=== PATIENT | female | born 2000 | race Caucasian/White ===

== ENCOUNTER 2020-03-19 04:45 | Inpatient (IN) | payer BC, SELFPAY ==
[2020-03-19] VITALS (57 sets, daily range): BP systolic 108–143; BP diastolic 57–86; PULSE 66–97; RESP 16; TEMP 36.8–37.9; O2SAT 91–100; BMI 28.4
[2020-03-19 04:27] LABS: ROM Internal Control Test YES-OK TO RESULT pt. (Internal QC); ROM Patient Test POSITIVE (Negative)
[2020-03-19] MEDS: Lactated Ringers 500 ML 999 ML IV (04:55)
[2020-03-19 05:09] LABS: Absolute Lymphocyte Count 1.82 X10^3/uL (0.83-4.51); Absolute Neutrophil Count 5.7 X10^3/uL (2.0-7.7); Basophil# 0.02 X10^3/uL; Basophil% 0.2 % (0-1); Eosinophil# 0.05 X10^3/uL; Eosinophils% 0.6 % (0-5); Hematocrit 35.3 % (37-47); Lymphocyte # 1.82 X10^3/ul (4.0); Lymphocyte % 21.8 % (19-41); Mean Corpuscular Hgb 31.6 pg (27.0-32.0); Mean Corpuscular Volume 92.9 fL (81-99); Mean Platelet Vol. 10.7 fl (6.2-12.0); Monocyte# 0.66 X10^3/uL; Monocyte% 7.9 % (0-10); NRBC Flagged by Analyzer 0 % (0-5); Neutrophil # 5.74 X10^3/uL (2.7-7.7); Platelet Count 242 K/mm3 (150-450); RBC Distribution Width CV 12.2 % (11.6-14.6); RBC Distribution Width SD 41.8 fl (35.1-43.9); White Blood Count 8.3 K/mm3 (4.4-11.0)
[2020-03-19] MEDS: Lactated Ringers 1,000 ML 200 ML IV ×2 (05:37→10:32)
[2020-03-19] MEDS: fentaNYL-bupivacaine (epidural) 100 ML BAG EPIDURAL ×2 (06:08→10:33)
[2020-03-19 06:50] LABS: Partial Thromboplast Time 27.8 Seconds (24.1-36.2); Prothrombin Time (Protime)PT. 12.3 SECONDS (11.7-14.9)
[2020-03-19 07:06] LABS: AST(SGOT) 24 U/L (15-37); Alanine Aminotransfer ALT/SGPT 21 U/L (13-56); Creatinine, Serum 0.82 mg/dL (0.55-1.02); EST Glomerular Filtration Rate 94 mL/min (>60); Est Glom Filt Rate - Afr Amer 114 mL/min (>60); Estimated Creatinine Clearance 90.53 ml/min; Uric Acid 5.1 mg/dL (2.6-6.0)
--- NOTE | 2020-03-19 07:19 | PCM.HP.OB ---
- Problem List (1) 38 weeks gestation of Status: Acute (2) Primiparous Status: Acute (3) SROM (spontaneous rupture of membranes) Status: Acute History Date of Admission: 03/19/20 Final TESSA: 03/27/20 Gestational age: 38 Weeks and 6 Days History of this : This is a 19 year-old, G 1, P 0, at 38 weeks gestational age who presents with SROM. Medical History: Medical History (Last Updated 03/19/20 @ 07:[address] Alicia Prado, ) Anemia affecting O99.019 Allergies No Known Allergies Allergy (Verified 03/19/20 04:00) Home Medications: Home Medications Docosahexanoic Acid [ Dha] 200 mg PO DAILY 03/19/20 Ferrous Sulfate [Iron] 325 mg PO DAILY 03/19/20 Smoking Status: Never smoker Number of Fetus(es): 1 History Past Pregnancies: Past Pregnancies Delivery Date Name GA/ Weeks Outcome Route Wt Infant Sex Labor Length Anesthesia Delivery Location Provider FOB Physical Exam Vitals: Vital Signs Temp Pulse BP Pulse Ox 98.2 F 82 125/82 H 99 03/19/20 06:41 03/19/20 07:14 03/19/20 07:11 03/19/20 07:14 General: Alert, No apparent distress HEENT: Atraumatic Abdomen: Soft, Gravid Extremities:: No edema Neurological: Neuro grossly intact UNDERWRITING OPERATIONS MANAGER: Normal external genitalia Estimated gestational size: Appropriate for gestational size Assessment/Plan All Active Problems (Last Updated 03/19/20 @ 07:[address] Alicia Prado, ) 38 weeks gestation of (Acute) Primiparous (Acute) SROM (spontaneous rupture of membranes) (Acute) This is a 19 year-old, G 1, P 0, at 38 weeks gestational age admitted for labor management. - Routine intrapartum care - Epidural PRN - GBS negative - Pelvis adequate and EFW expected to be < 4500g, anticipate
--- NOTE | 2020-03-19 08:06 | PCM.PN.BLA ---
Progress Note Cvx 370/-2, head well applied. AROM of forebag in usual sterile fashion for clear fluid. Category 1 tracing STROKE Vital Signs/Narrative: Vital Signs Temp Pulse BP Pulse Ox 03/19/20 07:14 82 99 03/19/20 07:11 98.4 F 79 125/82 H 03/19/20 07:09 85 99 03/19/20 07:04 85 99 03/19/20 06:59 91 98 03/19/20 06:54 81 98 03/19/20 06:52 91 91 03/19/20 06:48 83 98 03/19/20 06:43 88 98 03/19/20 06:41 98.2 F 03/19/20 06:38 85 128/75 H 99 03/19/20 06:33 85 99 03/19/20 06:32 132/79 H 03/19/20 06:28 87 99 03/19/20 06:27 92 134/79 H 03/19/20 06:23 86 135/74 H 98 03/19/20 06:22 85 133/69 H 03/19/20 06:18 94 135/77 H 98 03/19/20 06:14 91 132/63 H 03/19/20 06:13 94 98 03/19/20 06:12 94 134/84 H 03/19/20 06:08 96 98 03/19/20 06:07 98.2 F 97 131/76 H 03/19/20 06:03 86 98 03/19/20 06:02 81 130/70 H 03/19/20 05:58 80 98 03/19/20 05:57 132/77 H 03/19/20 05:53 88 118/73 97 03/19/20 05:52 90 121/73 H 03/19/20 05:48 77 99 03/19/20 05:47 83 131/81 H 03/19/20 05:43 85 99 03/19/20 05:28 100.2 F H 75 136/80 H 03/19/20 04:34 86 132/75 H 03/19/20 04:24 89 127/85 H
[2020-03-19] MEDS: Ondansetron 4 MG/2 ML Vial IV (11:27)
[2020-03-19] MEDS: Oxytocin 30 units/NS 500 ml 30 UNITS/500 ML IV.SOLN 334 UNITS IV (14:13)
--- NOTE | 2020-03-19 14:32 | PCM.OPRPT ---
Problem List (1) 38 weeks gestation of Status: Acute (2) Primiparous Status: Acute (3) SROM (spontaneous rupture of membranes) Status: Acute Report of Operation Date of Procedure: 03/19/20 Pre-Operative Diagnosis: 38 week gestation, SROM, labor, primiparous Post-Operative Diagnosis: As above Surgery/Procedure Performed:: Description of Surgical Findings:: Baby delivered in left occiput anterior position. Clear fluid. Placenta intact and normal-appearing with a three-vessel cord. Type of Anesthesia:: Epidural Special Medications: None Specimen's removed: Placenta Drains: Shaikh Estimated Blood Loss (mL): 200 Description of Procedure: Patient complete and pushing. Head of delivered in left occiput anterior position followed by the anterior shoulder, posterior shoulder, and body of infant without any force or delay. Vigorous, viable female was delivered atraumatically and placed on maternal abdomen. Cord was clamped and cut after a 60 sec delay by FOB. The placenta was delivered intact with fundal massage. Placenta was normal-appearing with a three-vessel cord. Uterus was explored x1. Fundus was firm and bleeding was hemostatic. A second-degree perineal laceration was repaired in usual fashion with 3-0 Vicryl. A right labial laceration was reapproximated with 3-0 Vicryl. Several additional labial abrasions were noted. Sponge, needle, instrument counts were correct. Grafts/Implants Used: None - Complications None - Admit VTE Documentation VTE Present on Admission: No VTE Mechan Device Prophylaxis: None VTE Pharm Prophylaxis ordered?: No Vaginal Delivery Maternal Presentation: Active Labor, Spontaneous Rupture of Membranes Amniotic Membrane Rupture Type: Spontaneous at home Amniotic Fluid Description: Clear Final TESSA: 03/27/20 Gestational age: 38 Weeks and 6 Days Surgery/ Procedure Performed: Spontaneous Vaginal Delivery Type of Anesthesia: Epidural Presentation: Vertex Cord Vessel Description: 3 Vessels Cord Entanglement: None Drain: Shaikh to straight drain A gender: Female (1 minute): 9 (5 minute): 9 Episiotomy Description: None Laceration: 2nd degree Medications given after delivery: IV Pitocin Complications: None
[2020-03-19] MEDS: 0.9% Saline Lock 10 ML Syringe IV (16:44)
[2020-03-19] MEDS: Ibuprofen 600 MG Tablet PO (19:38)
[2020-03-20 00:37] VITALS: BP 107/59; PULSE 74; RESP 16; TEMP 36.7
[2020-03-20 04:33] VITALS: BP 114/69; PULSE 66; RESP 16; TEMP 36.6
[2020-03-20] MEDS: Ibuprofen 600 MG Tablet PO (04:39)
[2020-03-20 07:47] VITALS: BP 108/66; PULSE 69; RESP 16; TEMP 36.7; O2SAT 97
--- NOTE | 2020-03-20 08:12 | PCM.PN.OB ---
Patient Problems: Active and Suspected Problems (Last Updated 03/19/20 @ 07:[address] Alicia Prado, DO) 38 weeks gestation of (Acute) Primiparous (Acute) SROM (spontaneous rupture of membranes) (Acute) Subjective: Patient seen at bedside. infant. Denies any pain, lochia decreasing and voiding without difficulty. Desires discharge home today. - Physical Exam Vitals/I&O's: Vital Signs Temp Pulse Resp BP Pulse Ox 98.0 F 69 16 108/66 97 03/20/20 07:47 03/20/20 07:47 03/20/20 07:47 03/20/20 07:47 03/20/20 07:47 Oxygen Delivery Method Room Air Weight: 160 lb 6.4 oz Body Mass Index (BMI) 28.4 Intake and Output for Last 24 Hours 03/18/20 03/19/20 03/20/20 23:59 23:59 23:59 Intake Total 3920.00 / 3920.00 Output Total 3500 / 3500 Balance 420.00 / 420.00 General: Alert, Oriented x3 HEENT: Atraumatic Oral: Moist Mucosa Lungs: Normal air movement Cardiovascular: Regular rate Abdomen: Soft, Non Tender, Non-Distended Skin: No rashes Neurological: Cranial nerves II-XII grossly intact Psych/Mental Status: Normal Affect, Appropriate Current Medications Acetaminophen (Tylenol) 1,000 mg PO Q8H PRN PRN PRN Reason: Pain Score 1-3/10 Bisacodyl (Dulcolax) 10 mg RECTAL UD PRN PRN Reason: If no BM Dibucaine (Dibucaine) 1 applic TOPICAL TID PRN PRN; Protocol PRN Reason: Discomfort Hydrocortisone (Hytone) 1 applic TOPICAL TID PRN PRN; Protocol PRN Reason: Discomfort Ibuprofen (Motrin) 600 mg PO Q6H PRN PRN PRN Reason: Pain Score 1-3/10 Last Admin: 03/20/20 04:39 Dose: 600 mg Documented by: Methylergonovine Maleate (Methergine) 0.2 mg IM X1 PRN PRN Reason: Excess bleeding/uterine atony Ondansetron HCl (Zofran) 4 mg IV Q4H PRN PRN PRN Reason: Nausea Senna/Docusate Sodium (Senokot-S, Melody-Colace) 1 - 2 tablet PO DAILY PRN PRN PRN Reason: Constipation Simethicone (Mylicon) 80 mg PO PCHS PRN PRN Reason: Indigestion/Stomach pain Sodium Chloride () 5 - 15 ml IV UD PRN PRN Reason: SALINE FLUSH Last Admin: 03/19/20 16:44 Dose: 10 ml Documented by: Medical Necessity - Tobacco Use Smoking Status: Never smoker Assessment/Plan All Active Problems (Last Updated 03/19/20 @ 07:[address] Alicia Prado, DO) 38 weeks gestation of (Acute) Primiparous (Acute) SROM (spontaneous rupture of membranes) (Acute) A/P PPD #2 Routine care support Discharge home
--- NOTE | 2020-03-20 08:15 | DCINST_ITS ---
Discharge Diet: No Restrictions Discharge Activity: Return to Normal Activity May resume sexual activity in: 6-8 weeks Additional Instructions: If you experience any of the following, contact your healthcare provider. * Bleeding that soaks a pad every hour for 2 hours * Fever 100.4 or higher * Unrelieved incision or abdominal pain * Swelling, redness, discharge or bleeding from your incision or episiotomy site * Your incision begins to separate * Problems urinating (including inability to urinate or burning while urinating). * Visual changes * Severe headache * Flu-like symptoms * Pain or redness in one of both of your breasts * Pain, warmth, tenderness or swelling in your legs, especially the calf area * Frequent nausea and vomiting * Symptoms of depression or anxiety If you experience any of the following, call 911 or go to the nearest Emergency Room. * Chest pain * Problems breathing * Seizure activity * Partial or complete paralysis of a body part, slurred speech, weakness or drooping of the face, or a sudden inability to walk or hold your balance Allergies/Adverse Reactions: Allergies No Known Allergies Allergy (Verified 03/19/20 04:00) Medications to take at Discharge Docosahexanoic Acid [ Dha] 200 mg PO DAILY 03/19/20 Ferrous Sulfate [Iron] 325 mg PO DAILY 03/19/20 When: 2 weeks virtual visit/ 6 weeks in office Primary Care Physician: Adams Stover DO [Primary Care Provider] - Test Results: Test results from this visit will be discussed in further detail at your follow- up appointment, if applicable. Proposed Discharge Date: 03/20/20
--- NOTE | 2020-03-20 08:15 | PCM.DCVAG ---
Discharge Diet: No Restrictions Discharge Activity: Return to Normal Activity May resume sexual activity in: 6-8 weeks Additional Instructions: If you experience any of the following, contact your healthcare provider. Bleeding that soaks a pad every hour for 2 hours Fever 100.4 or higher Unrelieved incision or abdominal pain Swelling, redness, discharge or bleeding from your incision or episiotomy site Your incision begins to separate Problems urinating (including inability to urinate or burning while urinating). Visual changes Severe headache Flu-like symptoms Pain or redness in one of both of your breasts Pain, warmth, tenderness or swelling in your legs, especially the calf area Frequent nausea and vomiting Symptoms of depression or anxiety If you experience any of the following, call 911 or go to the nearest Emergency Room. Chest pain Problems breathing Seizure activity Partial or complete paralysis of a body part, slurred speech, weakness or drooping of the face, or a sudden inability to walk or hold your balance Allergies/Adverse Reactions: Allergies No Known Allergies Allergy (Verified 03/19/20 04:00) Medications to take at Discharge Docosahexanoic Acid [ Dha] 200 mg PO DAILY 03/19/20 Ferrous Sulfate [Iron] 325 mg PO DAILY 03/19/20 When: 2 weeks virtual visit/ 6 weeks in office Primary Care Physician: Adams Stover DO [Primary Care Provider] - Test Results: Test results from this visit will be discussed in further detail at your follow-up appointment, if applicable. Proposed Discharge Date: 03/20/20
[2020-03-20 11:29] VITALS: BP 116/68; PULSE 76; RESP 16; TEMP 525.5; TEMP 978; O2SAT 98
[2020-03-20 17:16] VITALS: BP 120/77; PULSE 80; RESP 16; TEMP 36.7; O2SAT 97
== END 2020-03-20 17:15 | disposition home or self-care (01) | DRG 807 ==
LOC: WPOUT 04:50 → WP 04:50
PROVIDERS: Admitting Provider Obstetrics & Gynecology; PCP Family Medicine; Visit Provider Obstetrics & Gynecology
DX: O99.02 Anemia complicating childbirth (principal); D64.9 Anemia, unspecified; O70.1 Second degree perineal laceration during delivery; Z79.899 Other long term (current) drug therapy; Z3A.38 38 weeks gestation of pregnancy; Z37.0 Single live birth
CPT/HCPCS: 59050; 82565; 84112; 84450; 84460; 84550; 85025; 85610; 85730; 86850; 86900; 86901; 99218; J7120; 90686; A4216; G0378; J2405

== ENCOUNTER 2023-05-08 15:15 | Inpatient (IN) | payer OTHER, SELFPAY ==
[2023-05-08] VITALS (35 sets, daily range): BP systolic 117–171; BP diastolic 60–95; PULSE 72–103; TEMP 36.5–37.6; O2SAT 93–100; BMI 27.8
[2023-05-08 15:31] LABS: Absolute Lymphocyte Count 1.75 X10^3/uL (0.83-4.51); Absolute Neutrophil Count 6.5 X10^3/uL (2.0-7.7); Basophil# 0.03 X10^3/uL; Basophil% 0.3 % (0-1); Eosinophil# 0.03 X10^3/uL; Eosinophils% 0.3 % (0-5); Hematocrit 34.8 % (37-47); Hemoglobin 11.9 g/dL (12.0-15.0); Lymphocyte # 1.75 X10^3/ul (0.83-4.51); Lymphocyte % 19.7 % (19-41); Mean Corp Hgb Conc 34.2 g/dL (32-36); Mean Corpuscular Hgb 31.6 pg (27.0-32.0); Mean Corpuscular Volume 92.6 fL (81-99); Mean Platelet Vol. 10.8 fl (6.2-12.0); Monocyte# 0.55 X10^3/uL; Monocyte% 6.2 % (0-10); NRBC Flagged by Analyzer 0 % (0-5); Neutrophil # 6.48 X10^3/uL (2.7-7.7); Platelet Count 249 K/mm3 (150-450); RBC Distribution Width CV 12.1 % (11.6-14.6); RBC Distribution Width SD 41.4 fl (35.1-43.9); Red Blood Count 3.76 M/mm3 (4.2-5.4); White Blood Count 8.9 K/mm3 (4.4-11.0)
[2023-05-08] MEDS: Penicillin G Pot 5,000,000 UNITS in 0.9% Normal Saline (100mL MB+) 100 ML 150 UNITS IV (16:08)
[2023-05-08] MEDS: Lactated Ringers 1,000 ML 50 ML IV (16:11)
[2023-05-08 16:54] LABS: Syphilis Antibodies Non-reactive
[2023-05-08] MEDS: LACTATED RINGERS 500 ML 999 ML IV (17:55)
[2023-05-08] MEDS: fentaNYL-bupivacaine (epidural) 100 ML BAG EPIDURAL (19:15)
[2023-05-08] MEDS: Penicillin G 3,000,000 Units 50 ML 100 UNITS IV (20:10)
[2023-05-08] MEDS: Mag Hydrox/Al Hydrox/Simeth 30 ML UDC PO (20:14)
[2023-05-08] MEDS: Oxytocin 10 UNITS/ML Vial IM (20:49)
[2023-05-08] MEDS: Oxytocin 15 Units/NS 250ml 15 UNITS/250 ML IV.SOLN 83 UNITS IV (20:49)
--- NOTE | 2023-05-08 21:01 | HP.PCM.OB_ITS ---
HPI - General General Date of Admission: 05/08/23 HPI Narrative ОЛЕГ COYLE, is a 22 F who presents Maternal Data Information TESSA Calculator Estimated Delivery Date Method Current WG Current Estimate 05/11/23 Manual 39w 4d PFSH PFS Medical History (Updated 05/08/23 @ 22:37 by Alexsandra Cuellar CNM) Anemia affecting Home Medications docosahexaenoic acid 200 mg capsule 200 mg PO DAILY 03/19/20 [History Last Taken 03/18/20 21:00] ferrous sulfate 325 mg (65 mg iron) tablet 325 mg PO DAILY anemia 03/19/20 [History Last Taken 03/18/20 21:00] aspirin 81 mg tablet,delayed release (Adult Aspirin Regimen) 81 mg PO DAILY 05/08/23 [History Last Taken Unknown] famotidine 20 mg tablet (Acid Controller) 10 mg PO DAILY heartburn 05/08/23 [History Last Taken Unknown] Allergy/AdvReac Type Severity Reaction Status Date / Time No Known Allergies Allergy Verified 05/08/23 15:35 Surgical History no surgical history Social History Smoking Status: Never smoker History Elective abortions Hx Para 1 Spontaneous abortions Hx # Term Pregnancies Ectopic pregnancies Hx # Pregnancies Multiple births # of living children NST FHR Rate Baby A Baseline: 135 Variability:: Moderate Accelerations:: 15 x 15 Decelerations:: None FHR Category:: Category I Uterine Activity:: Every 2 minutes, strong ROS Constitutional Constitutional: Reports systems reviewed and no addt'l complaints, except as documented; Denies headache(s) Eyes Eyes: Denies acute decrease in peripheral vision, blurry vision or change in vision ENT HEENT: Reports systems reviewed and no addt'l complaints, except as documented Cardiovascular Cardiovascular: Denies chest pain or dizziness Respiratory/Chest Respiratory/Chest: Denies cough, dyspnea, dyspnea on exertion, shortness of breath at rest or shortness of breath with exertion Gastrointestinal Gastrointestinal: Denies abdominal pain, diarrhea, nausea or vomiting Genitourinary Genitourinary: Denies abdominal discomfort Musculoskeletal Musculoskeletal: Denies limited range of motion Integumentary Integumentary: Reports systems reviewed and no addt'l complaints, except as d ocumented Neurologic Neurologic: Reports systems reviewed and no addt'l complaints, except as documented Psychiatric Psychiatric: Reports systems reviewed and no addt'l complaints, except as documented Endocrine Endocrinology: Reports systems reviewed and no addt'l complaints, except as documented Hematologic/Lymphatic Hematologic/Lymphatic: Reports systems reviewed and no addt'l complaints, except as documented Allergic/Immunologic Allergic/Immunologic: Reports systems reviewed and no addt'l complaints, except as documented Vital Signs Vital Signs Vital Signs: 05/08/23 14:52 05/08/23 14:52 05/08/23 14:52 Temperature Temperature Source Temporal Pulse Rate 80 Blood Pressure 130/79 H BP Systolic 130 BP Diastolic 79 Pulse Ox 05/08/23 14:52 05/08/23 14:52 05/08/23 18:32 Temperature 97.7 F L Temperature Source Pulse Rate Blood Pressure 138/69 H BP Systolic 138 BP Diastolic 69 Pulse Ox 97 05/08/23 18:32 05/08/23 18:32 05/08/23 18:49 Temperature 98.3 F Temperature Source Pulse Rate 93 88 Blood Pressure BP Systolic BP Diastolic Pulse Ox 05/08/23 18:49 05/08/23 18:54 05/08/23 18:54 Temperature Temperature Source Pulse Rate 91 Blood Pressure 138/79 H BP Systolic 138 BP Diastolic 79 Pulse Ox 100 05/08/23 18:54 05/08/23 18:56 05/08/23 18:56 Temperature Temperature Source Pulse Rate 87 Blood Pressure 128/75 H BP Systolic 128 BP Diastolic 75 Pulse Ox 97 05/08/23 19:00 05/08/23 19:00 05/08/23 18:59 Temperature Temperature Source Pulse Rate 84 Blood Pressure 127/71 H BP Systolic 127 BP Diastolic 71 Pulse Ox 100 05/08/23 19:04 05/08/23 19:04 05/08/23 19:04 Temperature Temperature Source Pulse Rate 88 Blood Pressure 126/75 H BP Systolic 126 BP Diastolic 75 Pulse Ox 98 05/08/23 19:09 05/08/23 19:09 05/08/23 19:09 Temperature Temperature Source Pulse Rate 92 Blood Pressure 131/73 H BP Systolic 131 BP Diastolic 73 Pulse Ox 100 05/08/23 19:12 05/08/23 19:12 05/08/23 19:14 Temperature Temperature Source Pulse Rate 99 96 Blood Pressure BP Systolic BP Diastolic Pulse Ox 93 05/08/23 19:14 05/08/23 19:16 05/08/23 19:16 Temperature Temperature Source Pulse Rate 89 Blood Pressure 128/73 H BP Systolic 128 BP Diastolic 73 Pulse Ox 100 05/08/23 19:20 05/08/23 19:20 05/08/23 19:25 Temperature Temperature Source Pulse Rate 93 Blood Pressure 134/69 H 135/87 H BP Systolic 134 135 BP Diastolic 69 87 Pulse Ox 05/08/23 19:25 05/08/23 19:30 05/08/23 19:30 Temperature Temperature Source Pulse Rate 88 85 Blood Pressure 117/66 BP Systolic 117 BP Diastolic 66 Pulse Ox 05/08/23 19:30 05/08/23 19:36 05/08/23 19:36 Temperature 98.8 F Temperature Source Pulse Rate 85 Blood Pressure 122/64 H BP Systolic 122 BP Diastolic 64 Pulse Ox 05/08/23 19:39 05/08/23 19:39 05/08/23 19:45 Temperature Temperature Source Pulse Rate 90 Blood Pressure 128/73 H 135/60 H BP Systolic 128 135 BP Diastolic 73 60 Pulse Ox 05/08/23 19:45 05/08/23 19:49 05/08/23 19:49 Temperature Temperature Source Pulse Rate 94 83 Blood Pressure 127/63 H BP Systolic 127 BP Diastolic 63 Pulse Ox 05/08/23 19:55 05/08/23 19:55 05/08/23 19:59 Temperature Temperature Source Pulse Rate 101 H Blood Pressure 133/88 H 135/78 H BP Systolic 133 135 BP Diastolic 88 78 Pulse Ox 05/08/23 19:59 05/08/23 20:18 05/08/23 20:18 Temperature Temperature Source Pulse Rate 81 103 H Blood Pressure 133/68 H BP Systolic 133 BP Diastolic 68 Pulse Ox Weight Weight: 157 lb 2 oz Body Mass Index (BMI) 27.8 Labs Labs Labs: Blood Type AB POSITIVE Antibody Screen NEGATIVE Hct 34.8 % (37-47) L Hgb 11.9 g/dL (12.0-15.0) L Syphilis Total Ab Non-reactive Rhogam given: No Rubella Immune, Hep B Surf antigen Negative, Hepatitis C Negative, HIV nonreactive, GC/ Chlamydia negative, GBS positive Assessment & Plan (1) 39 weeks gestation of : (2) Active labor at term: (3) Positive GBS test: PLAN: Plan 1. Admit to Labor & Delivery 2. Routine Labs 3. GBS positive Antibiotic Prophylaxis 4. Continuous EFM 5. Epidural for pain management 6. Dr. Prado collaborating physician
--- NOTE | 2023-05-08 21:02 | EX.PCM.OBRPT ---
Assessment & Plan (1) Positive GBS test: (2) Vaginal delivery: Maternal Data Information TESSA Calculator Estimated Delivery Date Method Current WG Current Estimate 05/11/23 Manual 39w 4d Vaginal Delivery Maternal Presentation Maternal Presentation: Active Labor Operative Information Date of Procedure: 05/08/23 Pre-Operative Diagnosis: Active Labor Post-Operative Diagnosis: Surgery / Procedure Performed: Spontaneous Vaginal Delivery Type of Anesthesia: Epidural Estimated Blood Loss: 200 ml Time of Delivery: 20:46 Findings Description of Procedure: Progressed to complete with urge to push. Epidural for pain management. of viable male infant over intact perineum. APGARS 9 , 9 respectively. Infant head delivered with body immediately forthcoming. Placed on maternal abdomen, strong cry. Mouth and nares suctioned for secretions. Pitocin started for active 3rd stage management. Cord doubly clamped and cut by FOB after pulsations ceased, delayed cord clamping. Placenta delivered intact via alvarez, 3 vessel cord intact. Perineum inspected, intact. Fundus firm and hemostasis achieved. EBL 200 ml. Mom and baby stable, planning to breastfeed. Family bonding well. Dr. Prado notified of delivery. Kanchan BINGHAM assisted Presentation: Vertex and MARY KAY Amniotic Membrane Rupture Type: Spontaneous Amniotic Fluid Description: Clear Placental Delivery Description: Spontaneous Placenta Disposition: [facility] Cord Vessel Description: 3 Vessels Cord Entanglement: Around neck x 1, loose A Gender: Male (1 minute): 9 (5 minute): 9 Delayed Cord Clamping: Yes Post Vaginal Delivery Medications Given After Delivery: IV Pitocin Episiotomy Description: None Laceration: None Complication Complications: None
[2023-05-08] MEDS: Ibuprofen 600 MG Tablet PO (23:30)
[2023-05-09] MEDS: Acetaminophen 500 MG Tablet 1000 MG PO (00:22)
[2023-05-09 00:24] VITALS: BP 121/77; PULSE 81; RESP 16; TEMP 36.6
[2023-05-09 05:04] VITALS: BP 124/85; PULSE 68; RESP 16; TEMP 36.5
[2023-05-09 08:07] VITALS: BP 119/71; PULSE 68; RESP 16; TEMP 36.3
--- NOTE | 2023-05-09 08:40 | PCM.PN.OB ---
Subjective Subjective Pain well controlled, average lochia. No N/V. Objective Data Objective Data Vital Signs: Vital Signs Temp Pulse Resp BP Pulse Ox O2 Del Method 97.4 F L 68 16 119/71 100 Room Air 05/09/23 08:07 05/09/23 08:07 05/09/23 08:07 05/09/23 08:07 05/08/23 19:14 05/09/23 08:07 Oxygen Delivery Method Room Air Weight: 71.271 kg Body Mass Index (BMI) 27.8 Intake & Output: Intake and Output for Last 24 Hours 05/08/23 05/08/23 05/09/23 00:59 23:59 23:59 Intake Total Output Total Balance Lab / Micro Data 05/08/23 15:15 Labs: Laboratory Results - last 24 hr 05/08/23 15:15: WBC 8.9, RBC 3.76 L, Hgb 11.9 L, Hct 34.8 L, MCV 92.6, MCH 31.6, MCHC 34.2, RDW Std Deviation 41.4, RDW Coeff of [place] 12.1, Plt Count 249, MPV 10.8, Immature Gran % (Auto) 0.500, Neut % (Auto) 73.0 H, Lymph % (Auto) 19.7, [place] % (Auto) 6.2, Eos % (Auto) 0.3, Baso % (Auto) 0.3, Absolute Neuts (auto) 6.5, Absolute Lymphs (auto) 1.75, Nucleated RBC % 0, Syphilis Total Ab Non-reactive, Blood Type AB POSITIVE, Antibody Screen NEGATIVE Physical Exam Const alert and no apparent distress Narrative: Fundus firm, below umbilicus. Assessment & Plan (1) (spontaneous vaginal delivery): PLAN: PPD#1 doing well. and doing well likely d/c home tomorrow
[2023-05-09] MEDS: Ibuprofen 600 MG Tablet PO ×2 (09:22→16:27)
[2023-05-09 11:48] VITALS: BP 109/70; PULSE 83; RESP 16; TEMP 36.6
[2023-05-09 16:20] VITALS: BP 116/65; PULSE 78; RESP 16; TEMP 36.7
[2023-05-09 20:45] VITALS: BP 104/47; PULSE 80; RESP 17; TEMP 36.4; O2SAT 96
[2023-05-10] MEDS: Ibuprofen 600 MG Tablet PO (01:54)
[2023-05-10 01:56] VITALS: BP 128/63; PULSE 71; RESP 16; TEMP 36.6; O2SAT 96
[2023-05-10] MEDS: Influenza Virus Vac Quad 23-24 60 MCG/0.5 ML SYRINGE IM (08:49)
[2023-05-10 09:02] VITALS: BP 106/64; PULSE 76; RESP 16; TEMP 36.3
--- NOTE | 2023-05-10 09:10 | PCM.PN.OB ---
Subjective Subjective Doing well per patient and nursing staff. Ambulating and taking PO without difficulty. Voiding and passing flatus. Pain controlled. , services for assistance. Denies headache, visual changes, chest pain, shortness of breath, leg pain or increased bleeding. Lochia normal. Objective Data Objective Data Vital Signs: Vital Signs Temp Pulse Resp BP Pulse Ox O2 Del Method 97.4 F L 76 16 106/64 96 Room Air 05/10/23 09:02 05/10/23 09:02 05/10/23 09:02 05/10/23 09:02 05/10/23 01:56 05/10/23 01:56 Oxygen Delivery Method Room Air Weight: 157 lb 2 oz Body Mass Index (BMI) 27.8 Intake & Output: Intake and Output for Last 24 Hours 05/08/23 05/09/23 05/10/23 23:59 23:59 23:59 Intake Total Output Total Balance Lab / Micro Data 05/08/23 15:15 ROS Constitutional Constitutional: Reports systems reviewed and no addt'l complaints, except as documented; Denies headache(s) Eyes Eyes: Denies acute decrease in peripheral vision, blurry vision or change in vision ENT HEENT: Reports systems reviewed and no addt'l complaints, except as documented Cardiovascular Cardiovascular: Denies chest pain or dizziness Respiratory/Chest Respiratory/Chest: Denies cough, dyspnea, dyspnea on exertion, shortness of breath at rest or shortness of breath with exertion Gastrointestinal Gastrointestinal: Denies abdominal pain, diarrhea, nausea or vomiting Genitourinary Genitourinary: Denies abdominal discomfort Musculoskeletal Musculoskeletal: Denies limited range of motion Integumentary Integumentary: Reports systems reviewed and no addt'l complaints, except as documented Neurologic Neurologic: Reports systems reviewed and no addt'l complaints, except as documented Psychiatric Psychiatric: Reports systems reviewed and no addt'l complaints, except as documented Endocrine Endocrinology: Reports systems reviewed and no addt'l complaints, except as documented Hematologic/Lymphatic Hematologic/Lymphatic: Reports systems reviewed and no addt'l complaints, except as documented Allergic/Immunologic Allergic/Immunologic: Reports systems reviewed and no addt'l complaints, except as documented Physical Exam Const alert and oriented x3 General Appearance: cooperative Orientation / Consciousness: awake, oriented to person, oriented to place and oriented to time Exam Limitations: no limitations HEENT normocephalic Head and Scalp: normal to inspection, normocephalic and atraumatic Face and Sinus: normal facial exam Eyes General Eye: normal appearance of both eyes Neck full ROM Chest Chest: symmetrical chest wall rise Resp normal respiratory effort and normal air movement Auscultation: clear to auscultation bilaterally Cardio regular rate, regular rhythm, S1 normal heart sound, S2 normal heart sound, no murmurs, no rub, no gallops and no clicks GI normal to inspection, nondistended, normoactive bowel sounds and non-tender appearance of the vagina normal Back/Spine normal ROM Extremity normal to inspection and full ROM Skin no rashes or lesions noted Neuro oriented x3 and moves all extremities Sensorium / Orientation: awake, alert and oriented to person Assessment & Plan (1) (spontaneous vaginal delivery): PLAN: Plan 1) Routine PP care, PPD#1 2) Pain management 3) Vitals stable 4) 5) D/C home today, follow up in 2 weeks virtual and 6 week PP
--- NOTE | 2023-05-10 09:12 | PCM.DC.SUM ---
Providers Date of Admission: 05/08/23 Date of Discharge: 05/10/23 Primary Care Physician: Dr. Adams Stover DO Reason For Visit: VAGINAL DELIVERY Diagnosis Discharge Diagnosis (1) (spontaneous vaginal delivery): Status: Acute Code(s): O80 - Encounter for full-term uncomplicated delivery Plan 1) Routine PP care, PPD#1 2) Pain management 3) Vitals stable 4) 5) D/C home today, follow up in 2 weeks virtual and 6 week PP Medications at Discharge Home Medications docosahexaenoic acid 200 mg capsule 200 mg PO DAILY 03/19/20 ferrous sulfate 325 mg (65 mg iron) tablet 325 mg PO DAILY anemia 03/19/20 aspirin 81 mg tablet,delayed release (Adult Aspirin Regimen) 81 mg PO DAILY 05/08/23 famotidine 20 mg tablet (Acid Controller) 10 mg PO DAILY heartburn 05/08/23 Hospital Course Summary of Care Provided Minutes Spent on Discharge: 15 Weight / BMI Weight Weight: 157 lb 2 oz Body Mass Index (BMI) 27.8 ABG / Lab / Microbiology Data 05/08/23 15:15 D/C Instructions Discharge Diet: No restrictions Discharge Activity: Return to Normal Activity, May Drive, May Shower and May Take a Tub Bath May resume sexual activity in: 6 weeks Weight Bearing Status: Full weight bearing Call your doctor if you observe: Fever of 101 or Higher, Inability to urinate, Inability to have a bowel movement, Using more than 1 pad per hour, Shortness of breath, Chest pain, Increased palpitations (irregular heartbeat), Calf discomfort and Uncontrolled pain Please Follow Up With: Alexsandra Cuellar CNM When: 2 week virtual and 6 week PP visit Meaningful Use Info Meaningful Use Diagnoses (Choose all that apply): None applicable Discharge Plan Admission Admit Date/Time: 05/08/23 15:15 Primary Reason for Your Visit: Vaginal Delivery Attending Provider: Alexsandra Cuellar Primary Care Provider: Adams Stover Discharge Orders/Prescriptions Prescriptions: No Action ferrous sulfate 325 MG tablet 325 mg PO DAILY docosahexaenoic acid 200 MG capsule 200 mg PO DAILY aspirin [Adult Aspirin Regimen] 81 mg tablet,delayed release (DR/EC) 81 mg PO DAILY famotidine [Acid Controller] 20 mg tablet 10 mg PO DAILY Referrals / Follow Up: Alexsandra Cuellar CNM [Med Staff - Adv Practice Prof] - (2 week virtual visit and 6 week PP visit) Adams Stover DO [Primary Care Provider] - Disposition Disposition (needs filled in before D/C Order can be placed): Home, Self Care
== END 2023-05-10 10:30 | disposition home or self-care (01) | DRG 807 ==
LOC: WP 15:33
PROVIDERS: Admitting Provider Advanced Practice Midwife; PCP Family Medicine; Referring Provider Advanced Practice Midwife; Visit Provider Advanced Practice Midwife
DX: O99.824 Streptococcus B carrier state complicating childbirth (principal); Z37.0 Single live birth; O99.02 Anemia complicating childbirth; Z3A.39 39 weeks gestation of pregnancy
CPT/HCPCS: 59025; 59050; 85025; 86780; 86850; 86900; 86901; 99221; J7120; 90686; G0378